=== PATIENT | female | born 1995 | race Caucasian/White ===

== ENCOUNTER 2021-01-26 15:18 | Emergency (ER) | payer OTHER, SELFPAY ==
[2021-01-26 15:21] VITALS: BP 122/64; PULSE 86; RESP 18; TEMP 36.9; O2SAT 98; BMI 24.8
[2021-01-26 17:09] LABS: Adenovirus Not Detected (Not Detect); B. parapertussis Not Detected (Not Detecte); Bordetella pertussis Not Detected (Not Detecte); Chlamydophila pneumoniae Not Detected (Not Detect); Coronavirus 229E Not Detected (Not Detect); Coronavirus HKU1 Not Detected (Not Detect); Coronavirus NL 63 Not Detected (Not Detect); Coronavirus OC43 Not Detected (Not Detect); Human Metapneumovirus Not Detected (Not Detect); Human Rhinovirus/Enterovirus Detected (Not Detect); Influenza A Not Detected (Not Detect); Influenza B Not Detected (Not Detect); Mycoplasma pneumoniae Not Detected (Not Detect); Parainfluenza Virus 1 Not Detected (Not Detect); Parainfluenza Virus 2 Not Detected (Not Detect); Parainfluenza Virus 3 Not Detected (Not Detect); Parainfluenza Virus 4 Not Detected (Not Detect); Respiratory Syncytial Virus Not Detected (Not Detect); SARS- CoV-2 Not Detected (Not Detecte)
[2021-01-26 18:17] VITALS: BP 119/71; PULSE 74; O2SAT 100
[2021-01-26 18:30] VITALS: PULSE 81; O2SAT 99
--- NOTE | 2021-01-26 18:39 | ED_ITS ---
HPI - Headache General Chief Complaint: Headache Stated Complaint: NUASEA HEADACHE FEVER Time Seen by Provider: 01/26/21 18:32 Mode of arrival: Ambulatory Limitations: no limitations History of Present Illness HPI Narrative: 25-year-old woman is currently , history of migraines and for the last 3-4 days has had severe headaches, facial pain fluids do not taste good so she has not been drinking very much and is now dizzy and lightheaded when she stands up. No vomiting no diarrhea but she has been nauseated. She describes no significant fevers mild cough no significant nasal discharge. She has had no palpitations no lower extremity edema. Related Data Previous Rx's Medication Instructions Recorded promethazine 25 mg tablet 25 mg PO Q6H PRN #20 tab 01/26/21 Allergies Allergy/AdvReac Type Severity Reaction Status Date / Time amoxicillin Allergy Verified 01/26/21 15:21 latex Allergy Verified 01/26/21 15:21 Penicillins Allergy Verified 01/26/21 15:21 Review of Systems Review of Systems Narrative: Remainder of complete review of systems is otherwise unremarkable except for that included in the HPI. Patient History Medical History (Updated 01/26/21 @ 18:45 by Ester Holt MD) Migraine Social History Smoking Status: Never smoker Smoking Status: Never smoker alcohol intake frequency: holidays/special occasions only Substance Use Type: marijuana Exam Narrative Exam Narrative: General: Healthy appearing, mildly ill-appearing but Able to g katarzyna a complete and coherent history. Well-nourished well-developed HEENT: Moist mucous membranes, normal sclera with reactive pupils, no cervical adenopathy Respiratory: Lungs are clear to auscultation, no wheezing no rales no rhonchi. Full and symmetrical air movement Cardiac: Regular rate and rhythm no murmurs no bruits. No evidence of orthostasis when standing Abdomen: Soft, nontender, good bowel tones, no flank pain Skin: Warm and dry, no rashes Neurologic: Grossly neurologically intact with no obvious asymmetries or abnormalities Extremities: No trauma, well perfused Psych: Cooperative, appropriate insight and affect Initial Vital Signs Initial Vital Signs: Vital Signs Temperature 98.5 F 01/26/21 15:21 Pulse Rate 86 01/26/21 15:21 Respiratory Rate 18 01/26/21 15:21 Blood Pressure 122/64 01/26/21 15:21 Pulse Oximetry 98 01/26/21 15:21 Course Orders Ordered: ED Orders 01/26/21 15:25 Respiratory Panel (Film Array) Stat Discontinued Medications Ketorolac Tromethamine (Ketorolac 30 Mg/Ml Vial) 30 mg IM NOW ONE Stop: 01/26/21 18:33 Vital Signs Vital signs: Vital Signs - 8 hr 01/26/21 15:21 Temperature 98.5 F Pulse Rate 86 Respiratory Rate 18 Blood Pressure 122/64 Pulse Oximetry 98 MDM - Headache Lab Data Labs: Lab Results 01/26/21 Range/Units 15:25 Chlamy pneumoniae PCR Not detected (Not Detect) Adenovirus (PCR) Not detected (Not Detect) B. pertussis DNA (PCR) Not detected (Not Detecte) B.parapertussis DNA PCR Not detected (Not Detecte) Coronavirus OC43 (PCR) Not detected (Not Detect) Coronavirus HKU1 (PCR) Not detected (Not Detect) Coronavirus 229E (PCR) Not detected (Not Detect) SARS-CoV-2 (PCR) Not detected (Not Detecte) Coronavirus NL63 (PCR) Not detected (Not Detect) Human Metapneumovir PCR Not detected (Not Detect) Influenza Type A (PCR) Not detected (Not Detect) Influenza Type B (PCR) Not detected (Not Detect) M. pneumoniae (PCR) Not detected (Not Detect) Parainfluenza 1 (PCR) Not detected (Not Detect) Parainfluenza 2 (PCR) Not detected (Not Detect) Parainfluenza 3 (PCR) Not detected (Not Detect) Parainfluenza 4 (PCR) Not detected (Not Detect) RSV (PCR) Not detected (Not Detect) Entero/Rhino (PCR) Detected H (Not Detect) MDM Narrative Medical decision making narrative: 25-year-old woman with rhino virus exacerbating chronic migraine and dehydration without significant orthostatic hypotension. No evidence of sepsis, bacterial pneumonia, I do not suspect bacterial sinusitis and at this point no indication for additional imaging studies. Recommendations reviewed in her discharge discussion below she is safe for home discharge Discharge Plan Departure Patient Disposition: Home Clinical Impression: Rhinovirus infection Migraine Qualifiers: Migraine type: unspecified Status migrainosus presence: without status migrainosus Intractability: not intractable Qualified Code(s): G43.909 - Migraine, unspecified, not intractable, without status migrainosus Instructions: DI for Viral Upper Respiratory Infection -- Adult, DI for Sinus Headache Activity Restrictions/Additional Instructions: Thank you for coming in today I am sorry that you are feeling so poorly You do not have COVID You do have rhino virus. This is a typicalvirus associated with a common cold. The nasal fullness that you are experiencing is likely exacerbating your baseline headaches. I would suggest using Afrin nasal spray for the next 3-4 days to help with symptoms. Using 400 mg of ibuprofen (2 [id number] pills) and 1 Tylenol every 6 hours can be very helpful in controlling pain. All of these medications are safe with breast-feeding. It is important that you stay hydrated. Not only to make enough milk for your baby but to avoid the dizziness and fatigue that you are also noticing. Most viruses are going to last between 7 and 10 days in you generally feel this bad for only 3-4 days I have given you a prescription for Phenergan to help with the nausea. If you find that your having worse symptoms or new findings, please feel free to return to the ER Prescriptions: New promethazine 25 mg tablet 25 mg PO Q6H PRN (Reason: nausea and vomiting) Qty: 20 RF: 0
[2021-01-26] MEDS: KETOROLAC 30 MG/ML VIAL IM (18:40)
[2021-01-26] MEDS: PROMETHAZINE 25 MG TABLET PO (18:44)
[2021-01-26 18:51] VITALS: BP 128/75; PULSE 72; RESP 18; O2SAT 100
== END 2021-01-26 18:53 | disposition home or self-care (01) ==
PROVIDERS: Emergency Medicine; Emergency Provider Emergency Medicine
DX: G43.909 Migraine, unspecified, not intractable, without status migrainosus (principal); J06.9 Acute upper respiratory infection, unspecified; B97.89 Other viral agents as the cause of diseases classified elsewhere
CPT/HCPCS: 87633; 96372; 99283; J1885

== ENCOUNTER 2021-05-19 21:41 | Emergency (ER) | payer OTHER, SELFPAY ==
[2021-05-19 21:58] VITALS: BP 134/74; PULSE 83; RESP 17; TEMP 36.6; O2SAT 97; BMI 24.3
--- NOTE | 2021-05-19 23:33 | ED.GENADULT ---
HPI - General Adult General Chief complaint: Vaginal Bleeding Stated complaint: excessive menstrual bleeding Time Seen by Provider: 05/19/21 23:25 Source: patient Mode of arrival: Ambulatory Limitations: no limitations History of Present Illness HPI narrative: 25-year-old female who is here for evaluation of heavy vaginal bleeding. She states that she gave approximately 13 months ago. Has been breast-feeding since then. Last month had a menstrual cycle for the 1st time since she gave . She is not currently on control. 24 hours ago she started her 2nd menstrual cycle since she gave . Since then she has had heavy vaginal bleeding. She has gone through several tampons and pads and actually leak through these. Contacted nurse advice line who told her to come to the emergency department for further evaluation. Related Data Home Medications Medication Instructions Recorded Confirmed sertraline 50 mg tablet (Zoloft) 25 mg PO DAILY 05/19/21 05/19/21 Allergies Allergy/AdvReac Type Severity Reaction Status Date / Time amoxicillin Allergy Verified 01/26/21 15:21 latex Allergy Rash Verified 05/19/21 22:01 Penicillins Allergy Verified 01/26/21 15:21 Review of Systems Constitutional Constitutional: Denies fever(s) Cardiovascular Cardiovascular: Reports system reviewed and no additional complaints, except as documented Respiratory Respiratory: Reports system reviewed and no additional complaints, except as documented Gastrointestinal Gastrointestinal: Reports as per HPI and Reports system reviewed and no additional complaints, except as documented Genitourinary Genitourinary: Reports system reviewed and no additional complaints, except as documented and Reports as per HPI Hematologic/Lymphatic On Anticoagulants: No Patient History Medical History Migraine Social History Smoking Status: Never smoker Smoking Status: Never smoker alcohol intake frequency: holidays/special occasions only Substance Use Type: marijuana Exam Initial Vital Signs Initial Vital Signs: Vital Signs Temperature 98 F 05/19/21 21:58 Pulse Rate 83 05/19/21 21:58 Respiratory Rate 17 05/19/21 21:58 Blood Pressure 134/74 05/19/21 21:58 Pulse Oximetry 97 05/19/21 21:58 HENMT Head: normal to inspection and normocephalic Resp Effort & Inspection: normal respiratory effort Cardio Rate: regular rate GI Inspection: normal to inspection Skin General: no rashes or lesions noted Extrem General: normal to inspection Course Vital Signs Vital signs: Vital Signs - 8 hr 05/19/21 21:58 05/19/21 23:41 Temperature 98 F Pulse Rate 83 68 Respiratory Rate 17 16 Blood Pressure 134/74 119/71 Pulse Oximetry 97 98 Medical Decision Making MDM Narrative Medical decision making narrative: Patient's vital signs unremarkable. Discussed with her the symptoms she presents with. Discussed options to include waiting to see whether not the vaginal bleeding improves over the next several days versus starting her on a control pill to regulate her hormones. After this discussion the patient opted to wait to see if her symptoms improve. Given her presentation and vital signs of feel that we can hold on labs for now. No indication for ultrasounds and feel retained products of conception is unlikely. She was given return precautions. She expressed understanding and agreement. Discharge Plan Departure Patient Disposition: Home Clinical Impression: Vaginal bleeding Instructions: DI for Vaginal Bleeding Activity Restrictions/Additional Instructions: I do recommend that you contact your primary doctor for a follow-up. Return to the emergency department for any new or worsening symptoms like we discussed. Prescriptions: No Action sertraline [Zoloft] 50 mg tablet 25 mg PO DAILY 0RF Label Comments: Take 1 tablet by mouth once a day Take 1/2 tablet by mouth x 4 days, then 1 tablet by mouth once daily
[2021-05-19 23:41] VITALS: BP 119/71; PULSE 68; RESP 16; O2SAT 98
== END 2021-05-19 23:52 | disposition home or self-care (01) ==
PROVIDERS: Emergency Provider Emergency Medicine
DX: N93.9 Abnormal uterine and vaginal bleeding, unspecified (principal)
CPT/HCPCS: 99281

== ENCOUNTER → 2021-09-19 08:42 | Outpatient (CLI) | payer OTHER, SELFPAY ==
--- NOTE | 2021-09-19 | DI.MRI.S_ITS ---
PROCEDURE: MR SHOULDER LT W CON INDICATIONS: Strain of rotator cuff TECHNIQUE: After the administration of 12 mL of dilute intra-articular Gadolinium contrast, oblique coronal T1 and T2 spin echo with fat saturation, oblique sagittal T1 spin echo with and without fat saturation, oblique sagittal T2 fast spin echo with fat saturation, axial T1 spin echo with fat saturation through the shoulder. COMPARISON: None. FINDINGS: Image quality: Excellent. Rotator cuff: Tendinosis and low-grade articular and bursal surface partial thickness tear involving distal supraspinatus is seen at its insertion on the humeral head extending to musculotendinous junction. Tendinosis and low-grade articular surface partial-thickness tear involving distal infraspinatus at its insertion on the humeral head is seen. Distal subscapularis tendon is intact. No full-thickness rotator cuff tendon rupture. No rotator cuff muscle atrophy on sagittal images. Bones and bursae: No bone marrow contusions or fractures. No acromioclavicular joint degeneration. The acromion demonstrates conventional anatomy, without an os acromiale. Capsule and soft tissues: The glenohumeral ligaments appear intact. The long head of the biceps tendon demonstrates normal location and morphology. The rotator interval appears normal, without fibrosis. The coracohumeral ligament is of normal thickness. No intra-articular bodies. IMPRESSION: 1. Tendinosis and low-grade articular and bursal surface partial thickness tear involving distal supraspinatus extending to musculotendinous junction. Distal infraspinatus tendinosis and low-grade articular surface partial-thickness tear. No full-thickness rotator cuff tendon rupture. 2. No marrow edema. No fracture or dislocation. No gross loose bodies. 3. No evidence of focal labral tear. Dictated by: Mihai Hoffmann M.D. on 09/19/2021 at 12:34 Approved by: Mihai Hoffmann M.D. on 09/19/2021 at 12:35
--- NOTE | 2021-09-19 | DI.RAD.S_ITS ---
PROCEDURE: FL SHOULDER INJECTION MR/CT LT INDICATIONS: Strain of rotator cuff COMPARISON: None. TECHNIQUE: The indications, alternatives, benefits, risks, and complications of the procedure were explained to the patient. Written informed consent was obtained and placed in the chart. The shoulder was examined fluoroscopically and a site for needle placement chosen for entry into the glenohumeral joint from an anterior approach. The skin was prepped and draped in a sterile fashion, and 1% lidocaine infiltrated from skin down to joint capsule. A spinal needle was inserted into the glenohumeral joint, and a small amount of iodinated contrast media injected to confirm intra-articular placement of the needle tip. This was followed by approximately 12 mL dilute solution of a gadolinium containing MR contrast agent. The needle was removed and a dressing was applied. The patient was given postprocedural instructions and sent to the MR suite for MR imaging. FINDINGS: A single fluoroscopic spot image demonstrates intra-articular location of injected iodinated contrast. IMPRESSION: Successful fluoroscopically guided administration of dilute Gadolinium solution into the shoulder joint for MR arthrogram. Dictated by: Alyse Wilson MD, PhD on 09/19/2021 at 12:09 Approved by: Alyse Wilson MD, PhD on 09/19/2021 at 12:09
== END ==
PROVIDERS: Referring Provider Counselor Mental Health; Visit Provider Counselor Mental Health
DX: S46.012A Strain of muscle(s) and tendon(s) of the rotator cuff of left shoulder, initial encounter (principal); X58.XXXA Exposure to other specified factors, initial encounter
CPT/HCPCS: 23350; 73222

== ENCOUNTER 2022-02-08 10:43 | Emergency (ER) | payer OTHER, SELFPAY ==
[2022-02-08 10:48] VITALS: BP 114/60; PULSE 128; RESP 18; TEMP 38.2; O2SAT 98; BMI 24.3
--- NOTE | 2022-02-08 11:08 | DI.RAD.S_ITS ---
PROCEDURE: XR CHEST 1V INDICATIONS: suspected sepsis TECHNIQUE: One view of the chest was acquired. COMPARISON: None. FINDINGS: Surgical changes and devices: None. Lungs and pleura: Lungs are clear. No pleural effusions or pneumothorax. Mediastinum: Mediastinal contours appear normal. Heart size is normal. Mildly prominent central vasculature. Bones and chest wall: No suspicious bony lesions. Overlying soft tissues appear unremarkable. IMPRESSION: 1. Mildly prominent central vasculature raising the possibility of volume overload. 2. No dense consolidations to suggest pneumonia. Dictated by: Enedelia Tello M.D. on 02/08/2022 at 12:22 Approved by: Enedelia Tello M.D. on 02/08/2022 at 12:23
[2022-02-08] MEDS: ONDANSETRON 4 MG/2 ML INJ IV (11:11)
[2022-02-08] MEDS: KETOROLAC 30 MG/ML VIAL IV (11:33)
[2022-02-08] MEDS: SODIUM CHLORIDE 0.9% 1,000 ML 1000 ML IV (11:33)
--- NOTE | 2022-02-08 11:46 | ED.BACK ---
HPI - Back Pain/Injury General Chief Complaint: Back Pain/Injury Stated Complaint: V/ lower back pain Time Seen by Provider: 02/08/22 11:41 Source: patient Mode of arrival: Ambulatory History of Present Illness HPI Narrative: 26-year-old female who is here for evaluation of right-sided flank/lower back discomfort. States that it started with the rather sudden onset at approximately 0200 hours in the morning. She is not having any urinary symptoms. No vaginal bleeding. No change in bowel habits. No abdominal pain. No fevers. She did vomit once this morning. She was also having chills. No rashes. Has not tried anything for symptoms prior to arrival. Related Data Home Medications Medication Instructions Recorded Confirmed sertraline 50 mg tablet (Zoloft) 25 mg PO DAILY 05/19/21 05/19/21 Previous Rx's Medication Instructions Recorded ondansetron 4 mg disintegrating 4 mg PO Q6H PRN nausea and 02/08/22 tablet vomiting #10 tabs tramadol 50 mg tablet (Ultram) 50 mg PO Q8H PRN pain #10 tabs 02/08/22 Allergies Allergy/AdvReac Type Severity Reaction Status Date / Time amoxicillin Allergy Verified 01/26/21 15:21 latex Allergy Rash Verified 05/19/21 22:01 Penicillins Allergy Verified 01/26/21 15:21 Patient History Medical History Migraine Social History Smoking Status: Never smoker Smoking Status: Never smoker alcohol intake frequency: holidays/special occasions only Substance Use Type: marijuana Exam Initial Vital Signs Initial Vital Signs: Vital Signs Temperature 100.8 F H 02/08/22 10:48 Pulse Rate 128 H 02/08/22 10:48 Respiratory Rate 18 02/08/22 10:48 Blood Pressure 114/60 02/08/22 10:48 Pulse Oximetry 98 02/08/22 10:48 Oxygen Delivery Method 02/08/22 10:48 Const General: cooperative, healthy appearing and comfortable HENMT Head: normal to inspection and normocephalic Resp Effort & Inspection: normal respiratory effort Auscultation: clear to auscultation bilaterally Cardio Rate: regular rate Rhythm: regular rhythm GI Inspection: normal to inspection Palpation: soft and tender (Right lower quadrant) Back/Spine/Pelvis Back: CVA tenderness right Skin General: no rashes or lesions noted Neuro General: patient alert, patient awake, patient oriented x3 and moves all extremities Extrem General: normal to inspection and capillary refill normal Psych Appearance: grossly normal and well kempt Scores GCS Charanjit coma scale eye opening: Spontaneous [place] coma scale verbal response: Orientated Charanjit coma scale motor response: Obey commands [place] coma scale total score: 15 Course Orders Ordered: ED Orders 02/08/22 11:00 Complete Blood Count AUTO DIFF Stat Comprehensive Metabolic Panel Stat Lactate (Lactic Acid) Stat Lipase Stat Partial Thromboplastin Time Stat Procalcitonin Stat Prothrombin Time INR Stat 02/08/22 11:04 Ictotest Urine Stat Urine Culture Stat Urine Microscopic Stat 02/08/22 11:08 XR chest 1V Stat 02/08/22 11:11 Urine Culture Stat 02/08/22 11:15 Covid-19 + FLU A/B + RSV - PCR Stat 02/08/22 11:40 Blood Culture Stat 02/08/22 12:42 CT kidney ureter bladder (KUB) Stat 02/08/22 15:10 US pelvic complete Stat Discontinued Medications Sodium Chloride (Normal Saline 0.9%) 1,000 mls @ 1,000 mls/hr IV BOLUS ONE Stop: 02/08/22 12:07 Last Infusion: 02/08/22 12:34 Dose: 0 mls/hr Documented By: Admin: 02/08/22 11:33 Dose: 1,000 mls/hr Documented By: BT Ketorolac Tromethamine (Ketorolac 30 Mg/Ml Vial) 30 mg IV NOW ONE Stop: 02/08/22 11:27 Last Admin: 02/08/22 11:33 Dose: 30 mg Documented By: BT Morphine Sulfate (Morphine 4 Mg/Ml Inj) 4 mg IV NOW ONE Stop: 02/08/22 12:42 Last Admin: 02/08/22 12:58 Dose: 4 mg Documented By: CTS Ondansetron HCl (Ondansetron 4 Mg/2 Ml Inj) 4 mg IV NOW ONE Stop: 02/08/22 11:00 Last Admin: 02/08/22 11:11 Dose: 4 mg Documented By: BT Vital Signs Vital signs: Vital Signs - 8 hr 02/08/22 10:48 02/08/22 13:30 02/08/22 13:06 Temperature 100.8 F H 98.4 F Pulse Rate 128 H Respiratory Rate 18 Blood Pressure 114/60 Pulse Oximetry 98 98 Oxygen Delivery Method Room Air 02/08/22 13:07 02/08/22 13:07 02/08/22 13:30 Temperature Pulse Rate 104 H 106 H Respiratory Rate Blood Pressure 116/56 L Pulse Oximetry 98 97 Oxygen Delivery Method 02/08/22 13:35 02/08/22 13:35 02/08/22 16:54 Temperature Pulse Rate 103 H 99 H Respiratory Rate 14 Blood Pressure 116/70 116/70 Pulse Oximetry 97 99 Oxygen Delivery Method Room Air Room Air MDM - Back Pain/Injury Lab Data Attestation: I reviewed the patient's lab results. Result diagrams: 02/08/22 11:00 02/08/22 11:00 Labs: Lab Results 02/08/22 02/08/22 02/08/22 Range/Units 11:00 11:00 11:00 WBC 5.2 (4.5-11.0) X10^3/uL RBC 4.63 (4.0-5.2) X10^6/uL Hgb 13.8 (12.0-16.0) g/dL Hct 39.4 (36-46) % MCV 85.1 (80-100) fL MCH 29.7 (26-34) PG MCHC 34.9 (30-36) % RDW 12.2 (11.6-14.8) % Plt Count 210 (150-400) X10^3/uL Neut % (Auto) 85.2 H (50-75) % Lymph % (Auto) 4.3 L (25-40) % Cotton % (Auto) 9.8 (3-14) % Eos % (Auto) 0.3 L (2-4) % Baso % (Auto) 0.4 (0-2) % Neut # (Auto) 4400 (8441-7581) /uL Lymph # (Auto) 200 L (8962-5063) /uL Cotton # (Auto) 500 (0-900) /uL Eos # (Auto) 0 (0-450) /uL Baso # (Auto) 0 (0-100) /uL PT 13.1 H (10.1-12.7) SECONDS INR 1.1 (0.9-1.3) APTT 30 (26-36) SECONDS Sodium 137 (137-145) mmol/L Potassium 3.5 (3.4-5.1) mmol/L Chloride 104 (98-107) mmol/L Carbon Dioxide 20 L (22-32) mmol/L BUN 10 (7-17) mg/dL Creatinine 0.59 (0.52-1.04) mg/dL Estimated GFR > 60 (>60) mL/min BUN/Creatinine Ratio 16.9 (6-22) Glucose 97 (70-100) mg/dL Lactate (0.7-2.1) mmol/L Calcium 9.4 (8.4-10.2) mg/dL Total Bilirubin 0.6 (0.2-1.3) mg/dL AST 25 (14-36) IU/L ALT 21 (<35) IU/L Alkaline Phosphatase 82 (38-126) U/L Total Protein 8.7 H (6.3-8.2) g/dL Albumin 4.9 (3.5-5.0) g/dL Globulin 3.8 (1.7-4.1) g/dL Albumin/Globulin Ratio 1.3 (1.0-2.8) Lipase 46 (23-300) U/L Procalcitonin 0.04 (<0.5) ng/mL Ur Bilirubin Confirm (Negative) Urine RBC (0-5/HPF) Urine WBC (0-5/HPF) Ur Squamous Epith Cells (0-5/HPF) Amorphous Sediment Urine Bacteria (None) Urine Mucus (Negative) Ur Culture Indicated? SARS-CoV-2 (PCR) (Negative) Influenza A (RT-PCR) (NEGATIVE) Influenza B (RT-PCR) (NEGATIVE) RSV (PCR) (Negative) 02/08/22 02/08/22 02/08/22 Range/Units 11:00 11:04 11:04 WBC (4.5-11.0) X10^3/uL RBC (4.0-5.2) X10^6/uL Hgb (12.0-16.0) g/dL Hct (36-46) % MCV (80-100) fL MCH (26-34) PG MCHC (30-36) % RDW (11.6-14.8) % Plt Count (150-400) X10^3/uL Neut % (Auto) (50-75) % Lymph % (Auto) (25-40) % Cotton % (Auto) (3-14) % Eos % (Auto) (2-4) % Baso % (Auto) (0-2) % Neut # (Auto) (1654-1745) /uL Lymph # (Auto) (1810-6349) /uL Cotton # (Auto) (0-900) /uL Eos # (Auto) (0-450) /uL Baso # (Auto) (0-100) /uL PT (10.1-12.7) SECONDS INR (0.9-1.3) APTT (26-36) SECONDS Sodium (137-145) mmol/L Potassium (3.4-5.1) mmol/L Chloride (98-107) mmol/L Carbon Dioxide (22-32) mmol/L BUN (7-17) mg/dL Creatinine (0.52-1.04) mg/dL Estimated GFR (>60) mL/min BUN/Creatinine Ratio (6-22) Glucose (70-100) mg/dL Lactate 1.5 (0.7-2.1) mmol/L Calcium (8.4-10.2) mg/dL Total Bilirubin (0.2-1.3) mg/dL AST (14-36) IU/L ALT (<35) IU/L Alkaline Phosphatase (38-126) U/L Total Protein (6.3-8.2) g/dL Albumin (3.5-5.0) g/dL Globulin (1.7-4.1) g/dL Albumin/Globulin Ratio (1.0-2.8) Lipase (23-300) U/L Procalcitonin (<0.5) ng/mL Ur Bilirubin Confirm Negative (Negative) Urine RBC 0-1/hpf (0-5/HPF) Urine WBC 1-5/hpf (0-5/HPF) Ur Squamous Epith Cells 1-5 /hpf (0-5/HPF) Amorphous Sediment 3+ Urine Bacteria Few (2-10) H (None) Urine Mucus 1+ H (Negative) Ur Culture Indicated? Specimen cultured SARS-CoV-2 (PCR) (Negative) Influenza A (RT-PCR) (NEGATIVE) Influenza B (RT-PCR) (NEGATIVE) RSV (PCR) (Negative) 02/08/22 Range/Units 11:15 WBC (4.5-11.0) X10^3/uL RBC (4.0-5.2) X10^6/uL Hgb (12.0-16.0) g/dL Hct (36-46) % MCV (80-100) fL MCH (26-34) PG MCHC (30-36) % RDW (11.6-14.8) % Plt Count (150-400) X10^3/uL Neut % (Auto) (50-75) % Lymph % (Auto) (25-40) % Cotton % (Auto) (3-14) % Eos % (Auto) (2-4) % Baso % (Auto) (0-2) % Neut # (Auto) (6865-0900) /uL Lymph # (Auto) (5883-1581) /uL Cotton # (Auto) (0-900) /uL Eos # (Auto) (0-450) /uL Baso # (Auto) (0-100) /uL PT (10.1-12.7) SECONDS INR (0.9-1.3) APTT (26-36) SECONDS Sodium (137-145) mmol/L Potassium (3.4-5.1) mmol/L Chloride (98-107) mmol/L Carbon Dioxide (22-32) mmol/L BUN (7-17) mg/dL Creatinine (0.52-1.04) mg/dL Estimated GFR (>60) mL/min BUN/Creatinine Ratio (6-22) Glucose (70-100) mg/dL Lactate (0.7-2.1) mmol/L Calcium (8.4-10.2) mg/dL Total Bilirubin (0.2-1.3) mg/dL AST (14-36) IU/L ALT (<35) IU/L Alkaline Phosphatase (38-126) U/L Total Protein (6.3-8.2) g/dL Albumin (3.5-5.0) g/dL Globulin (1.7-4.1) g/dL Albumin/Globulin Ratio (1.0-2.8) Lipase (23-300) U/L Procalcitonin (<0.5) ng/mL Ur Bilirubin Confirm (Negative) Urine RBC (0-5/HPF) Urine WBC (0-5/HPF) Ur Squamous Epith Cells (0-5/HPF) Amorphous Sediment Urine Bacteria (None) Urine Mucus (Negative) Ur Culture Indicated? SARS-CoV-2 (PCR) Negative (Negative) Influenza A (RT-PCR) Flu a positive H (NEGATIVE) Influenza B (RT-PCR) Flu b negative (NEGATIVE) RSV (PCR) Negative (Negative) Point of Care Testing Test Results Negative Urine Dip Bedside Urine Glucose Negative Bedside Urine Bilirubin + 1 Bedside Urine Ketone +++ 80 Urine Specific Gaffney 1.030 Bedside Urine Occult Blood +/- Bedside Urine pH 6.0 Bedside Urine Protein +/- 15 Bedside Urine Urobilinogen - Negative Bedside Urine Nitrite - Negative Bedside Urine Leukocytes +/- 15 Esterase Imaging Data Chest x-ray: Radiologist's Impression: [address] [address] XRay Report Signed Patient: Poornima Boyd V MR#: [id number] : 1995 Acct:[id number] Age/Sex: 26 / F Date of Service: 02/08/22 Loc: ED Accession Number: [id number] ?? Procedure: XR chest 1V Ordering Provider: Kemar Augustine D.O. PROCEDURE:? XR CHEST 1V ? INDICATIONS:? suspected sepsis ? TECHNIQUE:? One view of the chest was acquired.? ? COMPARISON:? None. ? FINDINGS:? ? Surgical changes and devices:? None.? ? Lungs and pleura:? Lungs are clear.? No pleural effusions or pneumothorax.? ? Mediastinum:? Mediastinal contours appear normal.? Heart size is normal.? Mildly prominent central vasculature. ? Bones and chest wall:? No suspicious bony lesions.? Overlying soft tissues appear unremarkable.? ? IMPRESSION:? ? 1. Mildly prominent central vasculature raising the possibility of volume overload. ? 2. No dense consolidations to suggest pneumonia.? ? Dictated by: Enedelia Tello M.D. on 02/08/2022 at 12:22 ? ? Approved by: Enedelia Tello M.D. on 02/08/2022 at 12:23?? CT scan - abdomen/pelvis: Radiologist's Impression: [address] [address] [address] Scan Report Signed Patient: Poornima Boyd V MR#: [id number] : 1995 Acct:[id number] Age/Sex: 26 / F Date of Service: 02/08/22 Loc: ED Accession Number: [id number] ?? Procedure: CT kidney ureter bladder (KUB) Ordering Provider: Kemar Augustine D.O. PROCEDURE:? CT KIDNEY URETER BLADDER (KUB) ? INDICATIONS:? Right-sided flank pain eval for stone ? TECHNIQUE:? Axial sections were acquired from the lung bases to the pubic symphysis.? Coronal and sagittal reformats were performed.? For radiation dose reduction, the following was used: ?automated exposure control, adjustment of mA and/or kV according to patient size.? ? COMPARISON:? None. ? FINDINGS:? Image quality:? Excellent.? ? Lung bases:? Unremarkable.? ? Heart:? No significant findings. ? URINARY: Right Kidney: ? No stones or hydronephrosis.? Right Ureter:? No hydroureter.? ? Left Kidney: ? No stones or hydronephrosis. Left Ureter:? No hydroureter.? ? Bladder:? Normal wall thickness. No stones. ? ? ? ABDOMEN: Liver:? No masses. Gallbladder:? No calcifications.? Normal wall thickness.? ? Biliary ducts:? Nondilated. Pancreas:? Normal. Spleen:? Normal. Adrenal Glands:? No nodules. ? Stomach and Bowel:? Stomach, small bowel loops, and colon are unremarkable.? Normal appendix. Peritoneum:? No abnormal intraperitoneal fluid.? No free air.? ? Ventral Wall: ? No hernia.? Abdominal Nodes:? No enlarged retroperitoneal or mesenteric lymph nodes.? Vessels:? Aorta and inferior vena cava are normal in size.? ? PELVIS: Pelvic Organs:? Anteverted uterus contains an IUD.? The right ovary contains a 5.4 cm cyst.? No associated fluid.? The left ovary is normal. Pelvic Nodes: Unremarkable. Miscellaneous: No inguinal hernias are seen. ? ? ? Bones:? Unremarkable. ? IMPRESSION:? ? 1. No evidence of obstructive uropathy or urinary calcification. ? 2. Right ovarian cystic mass, probably dominant follicle.? Without contrast other pathology such as ovarian torsion is not excluded.? Correlate clinically and consider pelvic ultrasound.? Dictated by: Enedelia Tello M.D. on 02/08/2022 at 15:00 ? ? Approved by: Enedelia Tello M.D. on 02/08/2022 at 15:05? 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 Procedure: US pelvic complete Ordering Provider: Kemar Augustine D.O. PROCEDURE:? US PELVIC COMPLETE ? INDICATIONS:? R ovarian pathology seen on CT eval for torsion ? TECHNIQUE:? Real-time scanning was performed of the pelvic organs, with image documentation.? Additional endovaginal scanning was necessary due to incomplete visualization of the adnexal and endometrial structures by transabdominal scanning.? ? COMPARISON:? [facility], CT, CT KIDNEY URETER BLADDER (KUB), 02/08/2022, 13:48. ? FINDINGS:? ?? Uterus:? Uterus is anteverted and normal in size at 8.9 x 5.9 x 5.5 cm. The myometrium is homogeneous. ? The endometrium measures 10.4 mm combined thickness.? The IUD is seen at its expected location.? ? Ovaries:? Normal appearing arterial waveforms are confirmed to each ovary.? ? The right ovary measures 5.6 x 3.6 x 2.8 cm, with a calculated ovarian volume of 29.4 cc. ?Within the right ovary, there is a simple cyst that measures 4.4 x 3 x 2.5 cm. ? The left ovary measures 3 x 2.3 x 1.6 cm, with a calculated ovarian volume of 5.8 cc. The ovaries have a normal sonographic appearance. Less than 12 follicles can be seen in each ovary.? No adnexal masses are seen. ? Other:? A mild amount of free pelvic fluid is seen, which is considered to be within physiologic limits.? ? ? IMPRESSION:? Negative for ovarian torsion. ? Simple appearing right ovarian cyst seen that measures 4.4 cm. In a patient of this age, this is almost certainly benign. If it would be clinically appropriate, a followup pelvic ultrasound could be considered in 6 weeks to assure resolution/ improvement.? We strive to produce accurate, complete, and clear reports of imaging services. To assist us in improving patient care, this report was composed using standard report templates and voice recognition software. Therefore, it may contain abnormal punctuation, insertions and/or omissions. Occasional wrong-word or sound-alike substitutions may occur. Though we review the report and make efforts to correct it, we do recommend that the report be read carefully in proper context to recognize any text inaccuracies. ? ? Dictated by: Ricky Vasquez M.D. on 02/08/2022 at 15:33 ? ? Approved by: Ricky Vasquez M.D. on 02/08/2022 at 15:35?? MDM Narrative Medical decision making narrative: Patient is influenza A positive however I am not 100% convinced that is the cause of her symptoms. Her right flank pain abdominal pain was a fairly sudden onset. The CT scan shows no signs of kidney stone. There is no inflammation around the right kidney. The rest of her CT scan is unremarkable. The pelvic ultrasound shows a simple right ovarian cyst without signs of torsion. Her urinalysis does have ketones and blood however she is no symptoms consistent with a urinary tract infection. The plan to be is to wait until the urine culture results and we will contact her if we need to start any antibiotics. Will discharge home with symptom control. We did discuss her influenza diagnosis. She was given return precautions. She expressed understanding and agreement. Discharge Plan Departure Patient Disposition: Home Clinical Impression: Acute flank pain, Influenza A Instructions: Influenza Activity Restrictions/Additional Instructions: You can take Tylenol/ibuprofen for any fevers or discomfort. Medications were sent to [facility] in [place] per your request. Please take them as directed and as needed. Contact your primary doctor for a follow-up. Prescriptions: New ondansetron 4 mg tablet,disintegrating 4 mg PO Q6H PRN (Reason: nausea and vomiting) Qty: 10 0RF tramadol [Ultram] 50 mg tablet 50 mg PO Q8H PRN (Reason: pain) Qty: 10 0RF No Action sertraline [Zoloft] 50 mg tablet 25 mg PO DAILY Label Comments: Take 1 tablet by mouth once a day Take 1/2 tablet by mouth x 4 days, then 1 tablet by mouth once daily Referrals: Miscellaneous,Doctor, MD [Primary Care Provider] - Visit Report Forms: Patient Portal/API
[2022-02-08 11:56] LABS: Ictotest Urine Negative (Negative)
[2022-02-08 11:57] LABS: Add Manual Diff / Slide Review NO; Basophils Absolute Auto 0 /uL (0-100); Basophils Percent Auto 0.4 % (0-2); Eosinophils Absolute Auto 0 /uL (0-450); Eosinophils Percent Auto 0.3 % (2-4); Hematocrit 39.4 % (36-46); Hemoglobin 13.8 g/dL (12.0-16.0); Lymphocytes Absolute Auto 200 /uL (1100-4500); Lymphocytes Percent Auto 4.3 % (25-40); Mean Corpuscular HGB Conc 34.9 % (30-36); Mean Corpuscular Hemoglobin 29.7 PG (26-34); Mean Corpuscular Volume 85.1 fL (80-100); Monocytes Absolute Auto 500 /uL (0-900); Monocytes Percent Auto 9.8 % (3-14); Neutrophils Absolute Auto 4400 /uL (1500-7000); Neutrophils Percent Auto 85.2 % (50-75); Platelet Count 210 X10^3/uL (150-400); Red Blood Cell Count 4.63 X10^6/uL (4.0-5.2); Red Cell Distribution Width 12.2 % (11.6-14.8); White Blood Cell Count 5.2 X10^3/uL (4.5-11.0)
[2022-02-08 12:06] LABS: Influenza A - CEPHEID Flu A POSITIVE (NEGATIVE); Influenza B - CEPHEID Flu B NEGATIVE (NEGATIVE); Respiratory Syncytial Virus Negative (Negative)
[2022-02-08 12:08] LABS: COVID-19 CEPHEID 4-PLEX PCR Negative (Negative)
[2022-02-08 12:14] LABS: INR 1.1 (0.9-1.3); Prothrombin Time 13.1 SECONDS (10.1-12.7)
[2022-02-08 12:17] LABS: PTT Partial Thromboplastin Tim 30 SECONDS (26-36)
[2022-02-08 12:18] LABS: Lactate (Lactic Acid) 1.5 mmol/L (0.7-2.1)
[2022-02-08 12:19] LABS: Alanine Aminotransferase 21 IU/L (<35); Albumin 4.9 g/dL (3.5-5.0); Albumin Globulin Ratio 1.3 (1.0-2.8); Alkaline Phosphatase 82 U/L (38-126); Aspartate Aminotransferase 25 IU/L (14-36); BUN Creatinine Ratio 16.9 (6-22); Bilirubin Total 0.6 mg/dL (0.2-1.3); Blood Urea Nitrogen 10 mg/dL (7-17); Calcium 9.4 mg/dL (8.4-10.2); Carbon Dioxide 20 mmol/L (22-32); Chloride 104 mmol/L (98-107); Estimated Glomerular Filt Rate > 60 mL/min (>60); Globulin 3.8 g/dL (1.7-4.1); Glucose 97 mg/dL (70-100); HEMOLYSIS < 15 (0-50); Lipase 46 U/L (23-300); Potassium 3.5 mmol/L (3.4-5.1); Sodium 137 mmol/L (137-145); Total Protein 8.7 g/dL (6.3-8.2)
[2022-02-08 12:35] LABS: Procalcitonin 0.04 ng/mL (<0.5)
--- NOTE | 2022-02-08 12:42 | DI.CT.S_ITS ---
PROCEDURE: CT KIDNEY URETER BLADDER (KUB) INDICATIONS: Right-sided flank pain eval for stone TECHNIQUE: Axial sections were acquired from the lung bases to the pubic symphysis. Coronal and sagittal reformats were performed. For radiation dose reduction, the following was used: automated exposure control, adjustment of mA and/or kV according to patient size. COMPARISON: None. FINDINGS: Image quality: Excellent. Lung bases: Unremarkable. Heart: No significant findings. URINARY: Right Kidney: No stones or hydronephrosis. Right Ureter: No hydroureter. Left Kidney: No stones or hydronephrosis. Left Ureter: No hydroureter. Bladder: Normal wall thickness. No stones. ABDOMEN: Liver: No masses. Gallbladder: No calcifications. Normal wall thickness. Biliary ducts: Nondilated. Pancreas: Normal. Spleen: Normal. Adrenal Glands: No nodules. Stomach and Bowel: Stomach, small bowel loops, and colon are unremarkable. Normal appendix. Peritoneum: No abnormal intraperitoneal fluid. No free air. Ventral Wall: No hernia. Abdominal Nodes: No enlarged retroperitoneal or mesenteric lymph nodes. Vessels: Aorta and inferior vena cava are normal in size. PELVIS: Pelvic Organs: Anteverted uterus contains an IUD. The right ovary contains a 5.4 cm cyst. No associated fluid. The left ovary is normal. Pelvic Nodes: Unremarkable. Miscellaneous: No inguinal hernias are seen. Bones: Unremarkable. IMPRESSION: 1. No evidence of obstructive uropathy or urinary calcification. 2. Right ovarian cystic mass, probably dominant follicle. Without contrast other pathology such as ovarian torsion is not excluded. Correlate clinically and consider pelvic ultrasound. Dictated by: Enedelia Telol M.D. on 02/08/2022 at 15:00 Approved by: Enedelia Tello M.D. on 02/08/2022 at 15:05
[2022-02-08] MEDS: MORPHINE 4 MG/ML INJ IV (12:58)
[2022-02-08 13:06] VITALS: O2SAT 98
[2022-02-08 13:07] VITALS: BP 116/56; PULSE 104; O2SAT 98
[2022-02-08 13:30] VITALS: PULSE 106; TEMP 36.9; O2SAT 97
[2022-02-08 13:35] VITALS: BP 116/70; PULSE 103; O2SAT 97
[2022-02-08 14:54] LABS: Amorphous Sediment Urine 3+; Bacteria Urine Few (2-10); Culture Indicated Urine Specimen Cultured; Mucus Urine 1+ (Negative); RBC Urine 0-1/HPF (0-5/HPF); Squamous Epithelial Cell Urine 1-5 /HPF (0-5/HPF); WBC Urine 1-5/HPF (0-5/HPF)
--- NOTE | 2022-02-08 15:10 | DI.US.S_ITS ---
PROCEDURE: US PELVIC COMPLETE INDICATIONS: R ovarian pathology seen on CT eval for torsion TECHNIQUE: Real-time scanning was performed of the pelvic organs, with image documentation. Additional endovaginal scanning was necessary due to incomplete visualization of the adnexal and endometrial structures by transabdominal scanning. COMPARISON: [facility], CT, CT KIDNEY URETER BLADDER (KUB), 02/08/2022, 13:48. FINDINGS: Uterus: Uterus is anteverted and normal in size at 8.9 x 5.9 x 5.5 cm. The myometrium is homogeneous. The endometrium measures 10.4 mm combined thickness. The IUD is seen at its expected location. Ovaries: Normal appearing arterial waveforms are confirmed to each ovary. The right ovary measures 5.6 x 3.6 x 2.8 cm, with a calculated ovarian volume of 29.4 cc. Within the right ovary, there is a simple cyst that measures 4.4 x 3 x 2.5 cm. The left ovary measures 3 x 2.3 x 1.6 cm, with a calculated ovarian volume of 5.8 cc. The ovaries have a normal sonographic appearance. Less than 12 follicles can be seen in each ovary. No adnexal masses are seen. Other: A mild amount of free pelvic fluid is seen, which is considered to be within physiologic limits. IMPRESSION: Negative for ovarian torsion. Simple appearing right ovarian cyst seen that measures 4.4 cm. In a patient of this age, this is almost certainly benign. If it would be clinically appropriate, a followup pelvic ultrasound could be considered in 6 weeks to assure resolution/ improvement. We strive to produce accurate, complete, and clear reports of imaging services. To assist us in improving patient care, this report was composed using standard report templates and voice recognition software. Therefore, it may contain abnormal punctuation, insertions and/or omissions. Occasional wrong-word or sound-alike substitutions may occur. Though we review the report and make efforts to correct it, we do recommend that the report be read carefully in proper context to recognize any text inaccuracies. Dictated by: Ricky Vasquez M.D. on 02/08/2022 at 15:33 Approved by: Ricky Vasquez M.D. on 02/08/2022 at 15:35
[2022-02-08 16:54] VITALS: BP 116/70; PULSE 99; RESP 14; O2SAT 99
[2022-02-10 01:39] LABS: Acinetobacter baumannii Not Detected (Not Detect); Enterobacteriaceae species Not Detected (Not Detect); Enterococcus species Not Detected (Not Detect); Listeria monocytogenes Not Detected (Not Detect); Methicillin-resistant gene Not Detected (Not Detect); Staphylococcus species Detected (Not Detect); Streptococcus agalactiae (Gr B Not Detected (Not Detect); Streptococcus pneumonia Not Detected (Not Detect); Streptococcus pyogenes (Gr A) Not Detected (Not Detect); Streptococcus species Not Detected (Not Detect)
[2022-02-10 01:40] LABS: Candida albicans Not Detected (Not Detect); Candida glabrata Not Detected (Not Detect); Candida krusei Not Detected (Not Detect); Candida parapsilosis Not Detected (Not Detect); Candida tropicalis Not Detected (Not Detect); E. coli Not Detected (Not Detect); Enterobacter cloacae complex Not Detected (Not Detect); Haemophilus influenzae Not Detected (Not Detect); Neisseria meningitidis Not Detected (Not Detect); Proteus species Not Detected (Not Detect); Pseudomonas aeruginosa Not Detected (Not Detect); Serratia marcescens Not Detected (Not Detect)
== END 2022-02-08 16:59 | disposition home or self-care (01) ==
PROVIDERS: Emergency Provider Emergency Medicine
DX: J10.1 Influenza due to other identified influenza virus with other respiratory manifestations (principal); R10.9 Unspecified abdominal pain; Z20.822 Contact with and (suspected) exposure to COVID-19
CPT/HCPCS: 0241U; 36415; 71045; 74176; 76830; 76856; 80053; 81003; 81015; 81025; 83605; 83690; 84145; 85025; 85610; 85730; 87040; 87086; 87150; 93976; 96361; 96374; 96375; 99284; 99285; J1885; J2270; J2405

== ENCOUNTER 2022-12-20 16:08 | Emergency (ER) | payer OTHER, SELFPAY ==
[2022-12-20] VITALS (22 sets, daily range): BP systolic 116–175; BP diastolic 60–95; PULSE 50–85; RESP 12–27; TEMP 36.3–36.5; O2SAT 88–100; BMI 25.4
--- NOTE | 2022-12-20 16:18 | DI.US.S_ITS ---
PROCEDURE: US PELVIC COMPLETE INDICATIONS: SEVERE RIGHT LOWER QUADRANT PAIN ? APPY VS ECTOPIC VS TORSIO TECHNIQUE: Real-time scanning was performed of the pelvic organs, with image documentation. Additional endovaginal scanning was necessary due to incomplete visualization of the adnexal and endometrial structures by transabdominal scanning. COMPARISON: None. FINDINGS: Uterus: Uterus is anteverted and enlarged in size at 9.4 x 4.7 x 6.4 cm. The myometrium is homogeneous. No discrete uterine fibroids. The endometrium measures 5.5 mm combined thickness. Intrauterine device is noted within central endometrial location. No gross endometrial mass or fluid is seen. Ovaries: The right ovary measures 2.9 x 2.3 x 3.3 cm, with a calculated ovarian volume of 11.8 cc. The left ovary is not visualized on this study. Multiple follicles versus cysts are noted in right ovary measures up to 1.6 x 1.3 x 1.4 cm in size. No adnexal masses are seen. Other: No pathologic free abdominal or pelvic fluid. IMPRESSION: 1. Enlarged uterus, no discrete uterine fibroids. IUD in central endometrial location. No endometrial mass or fluid. 2. Right ovarian cysts versus follicles as above. No evidence of ovarian torsion. Left ovary is not visualized on this study. No gross adnexal mass. No pelvic free fluid. We strive to produce accurate, complete, and clear reports of imaging services. To assist us in improving patient care, this report was composed using standard report templates and voice recognition software. Therefore, it may contain abnormal punctuation, insertions and/or omissions. Occasional wrong-word or sound-alike substitutions may occur. Though we review the report and make efforts to correct it, we do recommend that the report be read carefully in proper context to recognize any text inaccuracies. Dictated by: Mihai Hoffmann M.D. on 12/20/2022 at 17:08 Approved by: Mihai Hoffmann M.D. on 12/20/2022 at 17:10
[2022-12-20] MEDS: MORPHINE 4 MG/ML INJ IV (16:22)
[2022-12-20] MEDS: ONDANSETRON 4 MG/2 ML INJ IV (16:22)
--- NOTE | 2022-12-20 16:33 | PC.NURSE ---
DI U/S in room.
[2022-12-20 16:47] LABS: Add Manual Diff / Slide Review NO; Alanine Aminotransferase 14 IU/L (<35); Albumin 4.9 g/dL (3.5-5.0); Albumin Globulin Ratio 1.4 (1.0-2.8); Alkaline Phosphatase 62 U/L (38-126); Aspartate Aminotransferase 20 IU/L (14-36); BUN Creatinine Ratio 13.8 (6-22); Basophils Absolute Auto 0 /uL (0-100); Basophils Percent Auto 0.3 % (0-2); Blood Urea Nitrogen 9 mg/dL (7-17); Calcium 9.9 mg/dL (8.4-10.2); Carbon Dioxide 19 mmol/L (22-32); Chloride 108 mmol/L (98-107); Eosinophils Absolute Auto 100 /uL (0-450); Eosinophils Percent Auto 0.9 % (2-4); Estimated Glomerular Filt Rate > 60 mL/min (>60); Globulin 3.4 g/dL (1.7-4.1); Glucose 88 mg/dL (70-100); HEMOLYSIS < 15 (0-50); Hematocrit 39.3 % (36-46); Hemoglobin 13.8 g/dL (12.0-16.0); Lipase 54 U/L (23-300); Lymphocytes Absolute Auto 2700 /uL (1100-4500); Lymphocytes Percent Auto 35.4 % (25-40); Mean Corpuscular HGB Conc 35.2 % (30-36); Mean Corpuscular Hemoglobin 30.2 PG (26-34); Mean Corpuscular Volume 85.5 fL (80-100); Monocytes Absolute Auto 700 /uL (0-900); Monocytes Percent Auto 9.2 % (3-14); Neutrophils Absolute Auto 4100 /uL (1500-7000); Neutrophils Percent Auto 54.2 % (50-75); Platelet Count 241 X10^3/uL (150-400); Potassium 3.3 mmol/L (3.4-5.1); Red Blood Cell Count 4.59 X10^6/uL (4.0-5.2); Red Cell Distribution Width 12.8 % (11.6-14.8); Sodium 138 mmol/L (137-145); Total Protein 8.3 g/dL (6.3-8.2); White Blood Cell Count 7.6 X10^3/uL (4.5-11.0)
--- NOTE | 2022-12-20 18:01 | ED_ITS ---
HPI - Abdominal Pain General Chief Complaint: Abdominal Pain Stated Complaint: ABD pain Time Seen by Provider: 12/20/22 17:53 Source: patient Mode of arrival: Family Vehicle History of Present Illness HPI narrative: Patient is a healthy 27-year-old female who presents today with right lower quadrant pain. She is last few days she is had some nausea decrease in appetite she would 1 episode of diarrhea this morning and threw up later this afternoon. Pain is pretty well localized in the right lower quadrant. Denies any flank pain fever or chills. But she reports that it hurts when she walks and moves. Related Data Home Medications Medication Instructions Recorded Confirmed sertraline 50 mg tablet (Zoloft) 25 mg PO DAILY 05/19/21 05/19/21 Previous Rx's Medication Instructions Recorded ondansetron 4 mg disintegrating 4 mg PO Q6H PRN nausea and 02/08/22 tablet vomiting #10 tabs tramadol 50 mg tablet (Ultram) 50 mg PO Q8H PRN pain #10 tabs 02/08/22 hydrocodone 5 mg-acetaminophen 325 1 tab PO Q6H PRN pain #10 tabs 12/20/22 mg tablet ondansetron 4 mg disintegrating 4 mg PO Q6-8H PRN nausea and 12/20/22 tablet vomiting #20 tabs Allergies Allergy/AdvReac Type Severity Reaction Status Date / Time amoxicillin Allergy Verified 12/20/22 16:15 latex Allergy Rash Verified 12/20/22 16:15 Penicillins Allergy Verified 12/20/22 16:15 Review of Systems Review of Systems ROS Unobtainable: All systems reviewed & are unremarkable except as noted in HPI and below Patient History Medical History Migraine Social History Smoking Status: Never smoker Smoking Status: Never smoker alcohol intake frequency: a few times a week Substance Use Type: marijuana Exam Initial Vital Signs Initial Vital Signs: Vital Signs Temperature 97.7 F 12/20/22 16:11 Pulse Rate 50 L 12/20/22 16:11 Respiratory Rate 16 12/20/22 16:11 Blood Pressure 121/75 12/20/22 16:11 Pulse Oximetry 88 L 12/20/22 16:11 Oxygen Delivery Method Room Air 12/20/22 16:11 GENERAL: Alert 27-year-old female and in no acute distress. HEENT: Head atraumatic,EOMI, pupils reactive, face symmetric, moist mucous membranes CARDIOVASCULAR: Regular rate and rhythm without murmurs, rubs or gallops. RESPIRATORY: Breath sounds equal bilaterally, no wheezes rales or rhonchi. ABDOMEN: Soft, tender right lower quadrant mild running negative Russo sign EXTREMITIES: Normal range of motion, no clubbing or edema. Neurovascularly intact NEUROLOGICAL: Alert and oriented x4. SKIN: Warm, dry, no laceration, no petechiae, no rashes or lesions. Course Orders Ordered: ED Orders 12/20/22 16:18 US pelvic complete Stat 12/20/22 16:20 Complete Blood Count AUTO DIFF Stat Comprehensive Metabolic Panel Stat Lipase Stat 12/20/22 17:55 Urine Microscopic Stat 12/20/22 18:10 CT abdomen pelvis w con Stat Discontinued Medications Hydrocodone Bitart/Acetaminophen (Hydrocodone/Acet 5/325 Prepack) 1 bottle MISC SEEINSTR ONE Stop: 12/20/22 19:34 Last Admin: 12/20/22 19:46 Dose: 1 bottle Documented By: TATIANA Hydromorphone HCl (Hydromorphone 0.5 Mg Inj) 0.5 mg IV NOW ONE Stop: 12/20/22 19:34 Last Admin: 12/20/22 19:46 Dose: 0.5 mg Documented By: TATIANA Sodium Chloride (Normal Saline 0.9%) 1,000 mls @ 1,000 mls/hr IV BOLUS ONE Stop: 12/20/22 19:09 Last Infusion: 12/20/22 19:15 Dose: Infused Documented By: Admin: 12/20/22 18:15 Dose: 1,000 mls/hr Documented By: JOHNATHAN Ketorolac Tromethamine (Ketorolac 30 Mg/Ml Vial) 15 mg IV NOW ONE Stop: 12/20/22 18:11 Last Admin: 12/20/22 18:15 Dose: 15 mg Documented By: JOHNATHAN Morphine Sulfate (Morphine 4 Mg/Ml Inj) 4 mg IV NOW ONE Stop: 12/20/22 16:18 Last Admin: 12/20/22 16:22 Dose: 4 mg Documented By: JOHNATHAN Ondansetron HCl (Ondansetron 4 Mg Odt) 4 mg PO NOW PRN PRN Reason: Nausea And Vomiting Last Admin: 12/20/22 18:08 Dose: 4 mg Documented By: JOHNATHAN Ondansetron HCl (Ondansetron 4 Mg/2 Ml Inj) 4 mg IV NOW PRN PRN Reason: Nausea And Vomiting Last Admin: 12/20/22 16:22 Dose: 4 mg Documented By: JOHNATHAN Ondansetron HCl (Ondansetron 4 Mg Odt Prepack) 1 bottle MISC SEEINSTR ONE Stop: 12/20/22 19:33 Last Admin: 12/20/22 19:46 Dose: 1 bottle Documented By: TATIANA Vital Signs Vital signs: Vital Signs - 8 hr 12/20/22 16:11 12/20/22 16:30 12/20/22 16:30 Temperature 97.7 F Pulse Rate 50 L 85 Respiratory Rate 16 22 Blood Pressure 121/75 130/68 Pulse Oximetry 88 L Oxygen Delivery Method Room Air 12/20/22 16:57 12/20/22 16:57 12/20/22 17:00 Temperature Pulse Rate 67 Respiratory Rate 13 Blood Pressure 116/66 116/67 Pulse Oximetry Oxygen Delivery Method 12/20/22 17:00 12/20/22 17:20 12/20/22 17:20 Temperature Pulse Rate 65 64 Respiratory Rate 24 18 Blood Pressure 121/73 Pulse Oximetry 100 99 Oxygen Delivery Method 12/20/22 17:30 12/20/22 17:40 12/20/22 17:40 Temperature Pulse Rate 62 62 Respiratory Rate 12 15 Blood Pressure 119/60 Pulse Oximetry 98 96 Oxygen Delivery Method 12/20/22 17:45 12/20/22 17:57 12/20/22 17:57 Temperature Pulse Rate 69 61 Respiratory Rate 22 Blood Pressure 116/77 Pulse Oximetry 98 98 Oxygen Delivery Method 12/20/22 18:00 12/20/22 18:00 12/20/22 18:15 Temperature Pulse Rate 68 66 Respiratory Rate 22 16 Blood Pressure 117/73 Pulse Oximetry 98 99 Oxygen Delivery Method 12/20/22 18:28 12/20/22 18:28 12/20/22 18:30 Temperature Pulse Rate 65 67 Respiratory Rate 12 Blood Pressure 127/71 Pulse Oximetry 99 99 Oxygen Delivery Method 12/20/22 18:40 12/20/22 18:40 12/20/22 18:45 Temperature Pulse Rate 71 74 Respiratory Rate 16 21 Blood Pressure 120/64 Pulse Oximetry 99 99 Oxygen Delivery Method 12/20/22 19:00 12/20/22 19:00 12/20/22 19:15 Temperature Pulse Rate 68 64 Respiratory Rate 19 23 Blood Pressure 120/68 Pulse Oximetry 100 99 Oxygen Delivery Method 12/20/22 19:21 12/20/22 19:21 12/20/22 19:30 Temperature Pulse Rate 61 66 Respiratory Rate 17 14 Blood Pressure 149/71 H Pulse Oximetry 100 100 Oxygen Delivery Method 12/20/22 19:41 12/20/22 19:41 12/20/22 19:45 Temperature Pulse Rate 65 68 Respiratory Rate 27 H 20 Blood Pressure 175/95 H Pulse Oximetry 99 99 Oxygen Delivery Method 12/20/22 20:01 Temperature 97.3 F L Pulse Rate Respiratory Rate Blood Pressure Pulse Oximetry Oxygen Delivery Method MDM - Abdominal Pain Lab Data 12/20/22 16:20 12/20/22 16:20 Labs: Lab Results 12/20/22 12/20/22 Range/Units 16:20 17:55 WBC 7.6 (4.5-11.0) X10^3/uL RBC 4.59 (4.0-5.2) X10^6/uL Hgb 13.8 (12.0-16.0) g/dL Hct 39.3 (36-46) % MCV 85.5 (80-100) fL MCH 30.2 (26-34) PG MCHC 35.2 (30-36) % RDW 12.8 (11.6-14.8) % Plt Count 241 (150-400) X10^3/uL Neut % (Auto) 54.2 (50-75) % Lymph % (Auto) 35.4 (25-40) % [place] % (Auto) 9.2 (3-14) % Eos % (Auto) 0.9 L (2-4) % Baso % (Auto) 0.3 (0-2) % Neut # (Auto) 4100 (2513-8791) /uL Lymph # (Auto) 2700 (2381-8150) /uL [place] # (Auto) 700 (0-900) /uL Eos # (Auto) 100 (0-450) /uL Baso # (Auto) 0 (0-100) /uL Sodium 138 (137-145) mmol/L Potassium 3.3 L (3.4-5.1) mmol/L Chloride 108 H (98-107) mmol/L Carbon Dioxide 19 L (22-32) mmol/L BUN 9 (7-17) mg/dL Creatinine 0.65 (0.52-1.04) mg/dL Estimated GFR > 60 (>60) mL/min BUN/Creatinine Ratio 13.8 (6-22) Glucose 88 (70-100) mg/dL Calcium 9.9 (8.4-10.2) mg/dL Total Bilirubin 1.0 (0.2-1.3) mg/dL AST 20 (14-36) IU/L ALT 14 (<35) IU/L Alkaline Phosphatase 62 (38-126) U/L Total Protein 8.3 H (6.3-8.2) g/dL Albumin 4.9 (3.5-5.0) g/dL Globulin 3.4 (1.7-4.1) g/dL Albumin/Globulin Ratio 1.4 (1.0-2.8) Lipase 54 (23-300) U/L Urine RBC 0-1/hpf (0-5/HPF) Urine WBC 0-1/hpf (0-5/HPF) Ur Squamous Epith Cells 5-10 /hpf H (0-5/HPF) Urine Bacteria Few (2-10) H (None) Ur Culture Indicated? 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 APPY VS ECTOPIC VS TORSIO TECHNIQUE: Real-time scanning was performed of the pelvic organs, with image documentation. Additional endovaginal scanning was necessary due to incomplete visualization of the adnexal and endometrial structures by transabdominal scanning. COMPARISON: None. FINDINGS: Uterus: Uterus is anteverted and enlarged in size at 9.4 x 4.7 x 6.4 cm. The myometrium is homogeneous. No discrete uterine fibroids. The endometrium measures 5.5 mm combined thickness. Intrauterine device is noted within central endometrial location. No gross endometrial mass or fluid is seen. Ovaries: The right ovary measures 2.9 x 2.3 x 3.3 cm, with a calculated ovarian volume of 11.8 cc. The left ovary is not visualized on this study. Multiple follicles versus cysts are noted in right ovary measures up to 1.6 x 1.3 x 1.4 cm in size. No adnexal masses are seen. Other: No pathologic free abdominal or pelvic fluid. IMPRESSION: 1. Enlarged uterus, no discrete uterine fibroids. IUD in central endometrial location. No endometrial mass or fluid. 2. Right ovarian cysts versus follicles as above. No evidence of ovarian torsion. Left ovary is not visualized on this study. No gross adnexal mass. No pelvic free fluid. We strive to produce accurate, complete, and clear reports of imaging services. To assist us in improving patient care, this report was composed using standard report templates and voice recognition software. Therefore, it may contain abnormal punctuation, insertions and/or omissions. Occasional wrong-word or sound-alike substitutions may occur. Though we review the report and make efforts to correct it, we do recommend that the report be read carefully in proper context to recognize any text inaccuracies. Dictated by: Mihai Hoffmann M.D. on 12/20/2022 at 17:08 PROCEDURE: US PELVIC COMPLETE INDICATIONS: SEVERE RIGHT LOWER QUADRANT PAIN ? APPY VS ECTOPIC VS TORSIO TECHNIQUE: Real-time scanning was performed of the pelvic organs, with image documentation. Additional endovaginal scanning was necessary due to incomplete visualization of the adnexal and endometrial structures by transabdominal scanning. COMPARISON: None. FINDINGS: Uterus: Uterus is anteverted and enlarged in size at 9.4 x 4.7 x 6.4 cm. The myometrium is homogeneous. No discrete uterine fibroids. The endometrium measures 5.5 mm combined thickness. Intrauterine device is noted within central endometrial location. No gross endometrial mass or fluid is seen. Ovaries: The right ovary measures 2.9 x 2.3 x 3.3 cm, with a calculated ovarian volume of 11.8 cc. The left ovary is not visualized on this study. Multiple follicles versus cysts are noted in right ovary measures up to 1.6 x 1.3 x 1.4 cm in size. No adnexal masses are seen. Other: No pathologic free abdominal or pelvic fluid. IMPRESSION: 1. Enlarged uterus, no discrete uterine fibroids. IUD in central endometrial location. No endometrial mass or fluid. 2. Right ovarian cysts versus follicles as above. No evidence of ovarian torsion. Left ovary is not visualized on this study. No gross adnexal mass. No pelvic free fluid. We strive to produce accurate, complete, and clear reports of imaging services. To assist us in improving patient care, this report was composed using standard report templates and voice recognition software. Therefore, it may contain abnormal punctuation, insertions and/or omissions. Occasional wrong-word or sound-alike substitutions may occur. Though we review the report and make efforts to correct it, we do recommend that the report be read carefully in proper context to recognize any text inaccuracies. Dictated by: Mihai Hoffmann M.D. on 12/20/2022 at 17:08 CT scan - abdomen/pelvis: Radiologist's Impression: PROCEDURE: CT ABDOMEN PELVIS W CON INDICATIONS: RLQ pain TECHNIQUE: After the administration of IV contrast, axial sections were acquired from the lung bases to the pubic symphysis. Coronal and sagittal reformats were performed. For radiation dose reduction, the following was used: automated exposure control, adjustment of mA and/or kV according to patient size. COMPARISON: [facility], CT, CT KIDNEY URETER BLADDER (KUB), 02/08/2022, 13:48. [facility], US, US PELVIC COMPLETE, 12/20/2022, 16:30. FINDINGS: Image quality: Excellent. Lung bases: Unremarkable. Heart: No significant findings. ABDOMEN: Liver: Unremarkable. Gallbladder: Unremarkable. Biliary ducts: Unremarkable. Pancreas: Unremarkable. Spleen: Unremarkable. Adrenal Glands: Unremarkable. Kidneys and Ureters: Unremarkable. Stomach and Bowel: A normal appendix is noted. A normal appendix can be seen involving the right lower quadrant, as on series 2 images 70 through 72. No focal right lower quadrant inflammatory change is seen. No dilated loops of small bowel are seen. The colon is relatively decompressed. There is moderate wall thickening seen involving the cecum and the ascending colon, with milder mucosal thickening seen throughout the colon more distally. The stomach is decompressed at the time of this study, limiting its evaluation. Peritoneum: No peritoneal abscess is seen. No abnormal intraperitoneal fluid. No free air. Ventral Wall: No hernia. Abdominal Nodes: No retroperitoneal or mesenteric adenopathy by size criteria. Vessels: Aorta and inferior vena cava are normal in size. PELVIS: Pelvic Organs: The uterus appears normal for age. The IUD is seen at its expected location. No adnexal masses are seen. Bilateral ovarian cysts are seen, which are considered to be within physiologic limits Bladder: Unremarkable. Pelvic Nodes: No enlarged lymph nodes. Miscellaneous: No inguinal hernias are seen. Bones: Unremarkable. IMPRESSION: Normal appendix. Generalized colitis can be seen, which is worst involving the cecum and the ascending colon. Please correlate with potential infectious and inflammatory causes of colitis, including C difficile colitis. Additional findings: IUD Dictated by: Ricky Vasquez M.D. on 12/20/2022 at 17:43 MDM Narrative Medical decision making narrative: Patient healthy 27-year-old female who presents with nausea vomiting diarrhea pretty significant right lower quadrant pain. It hurts to move it and walk ultrasound negative for ovarian torsion. Blood work has been reviewed she is no leukocytosis or electrolyte abnormality. CT shows probable colitis but no evidence of appendicitis or other etiology. Consistent with symptoms of diarrhea and vomiting likely gastritis. At this time I think supportive care only no need for antibiotics. She does not have a fever. She is been given Toradol and morphine in the ED she continues to have some pain and discomfort. Given a dose of Dilaudid prior to discharge. No need for further evaluation or admission. Discharge Plan Departure Patient Disposition: Home Clinical Impression: Gastroenteritis Instructions: DI for Viral Gastroenteritis -- Adult Activity Restrictions/Additional Instructions: *You have been diagnosed with gastroenteritis *What to do: At this time increase fluids as tolerated. No need for antibiotics symptoms should resolve. *Continue to take medications as directed Zofran 4 mg every 6-8 hours if needed for nausea or vomiting Tylenol 650 mg every 6 hours if needed for getm-kz-uwuozjiv pain Motrin 600 mg every 6 hours if needed for gjsg-sy-qitijzif pain [place] 1-2 tablets every 6 hours if needed for severe pain *Follow up with your primary care provider in 2-3 days or call [phone] *Return to ER if you should have increasing pain persistent vomiting despite medication or any new, worsening or concerning symptoms CONTROLLED SUBSTANCE DISCHARGE (Narcotoic/benzodiazepine/Flexeril/Phenergan) 1. You have been prescribed narcotic medications, it does have acetaminophen/Tylenol/paracetamol in it, DO NOT TAKE MORE THAN 4,00mg in 24 hours of Tylenol. TRAMADOL DOES NOT CONTAIN TYLENOL 2. Please understand that we cannot provide further refills of narcotics, benzodiazepines or controlled substances through the ED and her pain management will need to be through your provider. 3. While on these medications you cannot drive or operate heavy machinery. 4. You cannot sign legal documents or perform any duties such as this. 5. As long as you're taking opiate pain medications he should also be taking a stool softener such as Colace, Dulcolax, MiraLAX or prune juice, to help avoid constipation. Prescriptions: New ondansetron 4 mg tablet,disintegrating 4 mg PO Q6-8H PRN (Reason: nausea and vomiting) Qty: 20 0RF hydrocodone-acetaminophen 5-325 mg tablet 1 tab PO Q6H PRN (Reason: pain) Qty: 10 0RF No Action sertraline [Zoloft] 50 mg tablet 25 mg PO DAILY Patient Comments: Take 1 tablet by mouth once a day Take 1/2 tablet by mouth x 4 days, then 1 tablet by mouth once daily ondansetron 4 mg tablet,disintegrating 4 mg PO Q6H PRN (Reason: nausea and vomiting) Qty: 10 0RF tramadol [Ultram] 50 mg tablet 50 mg PO Q8H PRN (Reason: pain) Qty: 10 0RF Referrals: Miscellaneous,Doctor, MD [Primary Care Provider] - Stand Alone Forms: Patient Portal/API
--- NOTE | 2022-12-20 18:02 | PC.NURSE ---
Pt ambulated to restroom with steady gait. Friend at bedside.
[2022-12-20] MEDS: ONDANSETRON 4 MG ODT PO (18:08)
--- NOTE | 2022-12-20 18:08 | PC.NURSE ---
Physician bedside for eval.
--- NOTE | 2022-12-20 18:10 | DI.CT.S_ITS ---
PROCEDURE: CT ABDOMEN PELVIS W CON INDICATIONS: RLQ pain TECHNIQUE: After the administration of IV contrast, axial sections were acquired from the lung bases to the pubic symphysis. Coronal and sagittal reformats were performed. For radiation dose reduction, the following was used: automated exposure control, adjustment of mA and/or kV according to patient size. COMPARISON: [facility], CT, CT KIDNEY URETER BLADDER (KUB), 02/08/2022, 13:48. [facility], US, US PELVIC COMPLETE, 12/20/2022, 16:30. FINDINGS: Image quality: Excellent. Lung bases: Unremarkable. Heart: No significant findings. ABDOMEN: Liver: Unremarkable. Gallbladder: Unremarkable. Biliary ducts: Unremarkable. Pancreas: Unremarkable. Spleen: Unremarkable. Adrenal Glands: Unremarkable. Kidneys and Ureters: Unremarkable. Stomach and Bowel: A normal appendix is noted. A normal appendix can be seen involving the right lower quadrant, as on series 2 images 70 through 72. No focal right lower quadrant inflammatory change is seen. No dilated loops of small bowel are seen. The colon is relatively decompressed. There is moderate wall thickening seen involving the cecum and the ascending colon, with milder mucosal thickening seen throughout the colon more distally. The stomach is decompressed at the time of this study, limiting its evaluation. Peritoneum: No peritoneal abscess is seen. No abnormal intraperitoneal fluid. No free air. Ventral Wall: No hernia. Abdominal Nodes: No retroperitoneal or mesenteric adenopathy by size criteria. Vessels: Aorta and inferior vena cava are normal in size. PELVIS: Pelvic Organs: The uterus appears normal for age. The IUD is seen at its expected location. No adnexal masses are seen. Bilateral ovarian cysts are seen, which are considered to be within physiologic limits Bladder: Unremarkable. Pelvic Nodes: No enlarged lymph nodes. Miscellaneous: No inguinal hernias are seen. Bones: Unremarkable. IMPRESSION: Normal appendix. Generalized colitis can be seen, which is worst involving the cecum and the ascending colon. Please correlate with potential infectious and inflammatory causes of colitis, including C difficile colitis. Additional findings: IUD Dictated by: Ricky Vasquez M.D. on 12/20/2022 at 17:43 Approved by: Ricky Vasquez M.D. on 12/20/2022 at 17:47
[2022-12-20] MEDS: SODIUM CHLORIDE 0.9% 1,000 ML 1000 ML IV (18:15)
[2022-12-20] MEDS: KETOROLAC 30 MG/ML VIAL 15 MG IV (18:15)
[2022-12-20 18:21] LABS: RBC Urine 0-1/HPF (0-5/HPF); WBC Urine 0-1/HPF (0-5/HPF)
[2022-12-20 18:22] LABS: Bacteria Urine Few (2-10); Culture Indicated Urine Cult Not Indicated; Squamous Epithelial Cell Urine 5-10 /HPF (0-5/HPF)
[2022-12-20] MEDS: ONDANSETRON 4 MG ODT PREPACK 1 BOTTLE MISC (19:46)
[2022-12-20] MEDS: HYDROCODONE/ACET 5/325 PREPACK 1 BOTTLE MISC (19:46)
[2022-12-20] MEDS: HYDROMORPHONE 0.5 MG INJ IV (19:46)
== END 2022-12-20 20:02 | disposition home or self-care (01) ==
PROVIDERS: Emergency Medicine; Emergency Provider Emergency Medicine
DX: K52.9 Noninfective gastroenteritis and colitis, unspecified (principal)
CPT/HCPCS: 36415; 74177; 76856; 80053; 81003; 81015; 81025; 83690; 85025; 96361; 96374; 96375; 99284; 99285; J1170; J1885; J2270; J2405; Q9967